=== PATIENT | male | born 1950 | race Caucasian/White ===

== ENCOUNTER 2019-09-06 16:09 | Inpatient (IN) | payer MEDICAID, SELFPAY ==
[~2019-09-06] VITALS: Ht 175.3 cm; Wt 76.2 kg
--- NOTE | 2019-09-06 16:37 | NUR ---
BIBRA FROM HOME TO ER BED 5. AAOX4. BREATHING RAPID AND DEEP BUT DENIES SOB. CAME IN FOR COUGH X 1 WEEK. PT IS NOTED 88% ON RA, PLACED ON O2 VIA NC @ 4LPM. PT WAS TESTED POSITIVE FOR COVID PER REPORT. NO FEVER. MD AT BEDSIDE FOR EVAL. AWAITING ORDERS
[2019-09-06] MEDS ORDERED: ACETAMINOPHEN ES 500 MG TABLET ONE (16:53)
[2019-09-06] MEDS ORDERED: IV NS 0.9% 500 ML IV ONE (17:00)
--- NOTE | 2019-09-06 17:09 | NUR ---
PT NOTED WITH ORAL TEMP 101.3, MADE AWARE. IV LINE OBTAINED ON L AC 18G. BLOOD DRAWN AND SENT TO LAB. URINE COLLECTED VIA CLEAN CATCH. RT AT BEDSIDE FOR ABG DRAW. PT IN O2 VIA NC @ 4LPM
[2019-09-06 17:12] LABS: BASOPHILS % (AUTO) 0.2 % (0.0-2.0); HEMATOCRIT 41 % (39-51); HEMOGLOBIN 13.8 g/dL (13.5-17.5); LYMPHOCYTES # (AUTO) 1.8 /CMM (0.8-4.8); LYMPHOCYTES % (AUTO) 20.5 % (20.0-44.0); MEAN CORPUSCULAR HGB CONC 33 g/dl (31.0-36.0); MEAN CORPUSCULAR VOLUME 86 fL (80-96); MONOCYTES # (AUTO) 0.9 /CMM (0.1-1.30); MONOCYTES % (AUTO) 10.8 % (2.0-12.0); NEUTROPHILS # (AUTO) 5.9 /CMM (1.8-8.9); NEUTROPHILS % (AUTO) 68.5 % (43.0-81.0); PLATELET COUNT (AUTO) 155 /CMM (150-450); RED BLOOD CELL COUNT(AUTO) 4.81 MIL/uL (4.5-6.0); WHITE BLOOD COUNT (AUTO) 8.6 K/uL (4.3-11.0)
[2019-09-06 17:19] LABS: CALCIUM, SERUM 8.2 mg/dL (8.5-10.1); CREATININE 3.2 mg/dL (0.6-1.3); POTASSIUM 4.9 mmol/L (3.5-5.1)
--- NOTE | 2019-09-06 17:26 | NUR ---
PHARMACY CALLED FOR ATB
[2019-09-06] MEDS ORDERED: CEFEPIME 1 GM in IV D5W 50 ML IV ONE (17:30)
[2019-09-06] MEDS ORDERED: VANCOMYCIN 1 GM in IV D5W 250 ML IV ONE (17:30)
[2019-09-06 17:31] LABS: APPEARANCE,URINE Clear (CLEAR); BILIRUBIN,URINE Negative (NEGATIVE); BLOOD, URINE Small Ery/uL (NEGATIVE); COLOR,URINE Yellow (YELLOW); KETONES,URINE Negative (NEGATIVE); LEUKOCYTE ESTERASE ,URINE Negative (NEGATIVE); NITRITE, URINE Negative (NEGATIVE); PROTEIN,URINE 100 mg/dl (NEGATIVE); UGLUCOSE Negative (NEGATIVE); UROBILINOGEN,URINE 0.2 EU/dL (0.2)
[2019-09-06 17:32] LABS: BACTERIA,URINE Few /HPF (None Seen); SQUAMOUS EPITHELIAL CELL,UR Few /HPF (None Seen); WBC,URINE 0-2 /HPF (0-3)
[2019-09-06 17:33] LABS: ALBUMIN 2.8 g/dL (3.4-5.0); BILIRUBIN,TOTAL 0.5 mg/dL (0.2-1.0); TOTAL PROTEIN, SERUM 8.1 g/dL (6.4-8.2)
[2019-09-06 17:39] LABS: D-DIMER 0.71 mg/L(FEU (0.17-0.50)
[2019-09-06 17:42] LABS: ABG BASE EXCESS -8.8 mmol/L; ABG OXYGEN SATURATION 94.1 % (92.0-98.5); ABG PCO2 22.7 mmHg (35.0-45.0); ABG PH 7.404 (7.350-7.450); ABG PO2 73.2 mmHg (75.0-100.0); AaDO2 185.9 mmHg; COHb 0.1 % (0.5-1.5); MetHb 0.4 % (0.0-1.5); O2Hb 93.6 % (94.0-97.0); SITE, ABG Right Brachial
--- NOTE | 2019-09-06 18:27 | NUR ---
LORE SAMUEL TALKING TO [place]
[2019-09-06] MEDS ORDERED: ACETAMINOPHEN ES 500 MG TABLET PO ONE (18:30)
[2019-09-06 18:36] LABS: C-REACTIVE PROTEIN 7.8 mg/dL (0.0-0.9)
--- NOTE | 2019-09-06 19:21 | NUR ---
ANGELA CARRANZA (SON) AND LATIA TERE () - [phone]. OK TO GIVE INFORMATION TO THIS PEOPLE
--- NOTE | 2019-09-06 19:40 | NUR ---
PANEL PAGED PER ER MD ORDER.
--- NOTE | 2019-09-06 19:44 | NUR ---
ER TALKING TO BRANDON GARCIA REGARDING PT ADMISSION.
--- NOTE | 2019-09-06 20:30 | NUR ---
COVID SWAB DONE AND SENT TO LAB.
--- NOTE | 2019-09-06 20:46 | NUR ---
REPORT GIVEN TO ABELINO FRANCO FOR LOGAN
[2019-09-06 22:00] VITALS: BP 144/77
[2019-09-06 22:05] VITALS: BP 144/77
--- NOTE | 2019-09-06 22:05 | NUR ---
RADIO OFFICER: ADMISSION 69 years old male admitted c/o coughing. Sinus Rhythm in the Tele monitor. Patient is Martiniquais speaking, SHERRY Andrews assist with translation. Tolerating room air, denies SOB at rest and with exertion. Ambulates independently. Skin intact. Safety measure discussed, verbalized understanding.
--- NOTE | 2019-09-06 22:07 | NUR ---
PT TRANSPORTED TO UNIT ON [place] WITH EMT AND RN AT BEDSIDE. NAD NOTED DURING TRANSPORT. PT AMBULATED FROM GURNEY TO BED.
--- NOTE | 2019-09-06 22:54 | NUR ---
BOILER CONTROL TECHNICIAN: INSULIN Prior transferred to unit, allergy to Insulin per ED report. Patient with history of Diabetes. SHERRY Andrews assist with Arabic translation, per patient he is taking insulin at home. Called home, spoke to Derrick Joe, son, patient is taking insulin and patients spouse help giving insulin to patient per son. Allergy to medication updated. Also list of current home medication provided by Son Derrick Joe.
[2019-09-06] MEDS ORDERED: ONDANSETRON HCL/PF 4 MG/2 ML VIAL IVP PRN (23:00)
[2019-09-06] MEDS ORDERED: DEXTROSE 50%-WATER 50 ML DISP.SYRIN IV PRN (23:00)
[2019-09-06] MEDS ORDERED: Z GUARD REMEDY 2 OZ OINT TP PRN (23:00)
[2019-09-06] MEDS ORDERED: ACETAMINOPHEN 325 MG TABLET PO PRN (23:00)
[2019-09-06] MEDS ORDERED: ZOLPIDEM TARTRATE 5 MG TABLET PO PRN (23:00)
[2019-09-06] MEDS ORDERED: MAG HYDROX/AL HYDROX/SIMETH 30 ML UDC PO PRN (23:00)
[2019-09-06] MEDS ORDERED: HYDROCODONE/APAP 5/325MG 1 EACH TABLET PO PRN (23:00)
[2019-09-06] MEDS ORDERED: AZITHROMYCIN 250 MG TABLET PO ONE (23:00)
[2019-09-06] MEDS ORDERED: AMLO10TA7 PO (23:03)
[2019-09-06] MEDS ORDERED: BENA20TA9 PO (23:03)
[2019-09-06] MEDS ORDERED: ASPI-605 PO (23:03)
[2019-09-06] MEDS: BLOOD SUGAR DIAGNOSTIC 1 EACH STRIP IN SCH (23:42)
[2019-09-06] MEDS: HEPARIN SODIUM, PORCINE 5000 UNITS/1 ML VIAL SQ SCH (23:46)
--- NOTE | 2019-09-06 23:49 | NUR ---
ORE WASHER: LOW BLOOD GLUCOSE Blood glucose 56mg/dl patient can eat. Remains alert and verbally responsive. Given orange juice and snack. Will recheck blood glucose.
[2019-09-06] MEDS: HYDROXYCHLOROQUINE 200 MG TABLET PO SCH (23:54)
[2019-09-07] VITALS (11 sets, daily range): BP systolic 121–150; BP diastolic 62–79
--- NOTE | 2019-09-07 00:34 | NUR ---
COUNTY ASSESSOR: REPEAT BLOOD GLUCOSE Blood glucose improved, 99mg/dl after snack. Patient remains verbally responsive, A/O x4.
--- NOTE | 2019-09-07 06:18 | NUR ---
CERTIFIED TRAVEL COUNSELOR: END OF SHIFT REPORT Patient in bed, remains on supplemental Oxygen at 2L NC, unable to lie flat in bed, denies SOB at rest and with exertion. Sinus Rhythm in the Tele monitor, denies pain. Ambulates to the bathroom with standby assist. Med recon for review, HYACINTH Perkins aware, will endorse to oncoming RN to follow up. COVID-19 pending result, contact/droplet precaution maintained.
[2019-09-07] MEDS: BLOOD SUGAR DIAGNOSTIC 1 EACH STRIP IN SCH ×4 (06:28→21:34)
[2019-09-07 06:48] LABS: BASOPHILS % (AUTO) 0.3 % (0.0-2.0); EOSINOPHILS % (AUTO) 0.3 % (0.0-6.0); HEMATOCRIT 40 % (39-51); HEMOGLOBIN 13.2 g/dL (13.5-17.5); LYMPHOCYTES % (AUTO) 29.2 % (20.0-44.0); MEAN CORPUSCULAR HGB CONC 33 g/dl (31.0-36.0); MEAN CORPUSCULAR VOLUME 86 fL (80-96); MONOCYTES # (AUTO) 0.7 /CMM (0.1-1.30); MONOCYTES % (AUTO) 10.1 % (2.0-12.0); NEUTROPHILS % (AUTO) 60.1 % (43.0-81.0); PLATELET COUNT (AUTO) 152 /CMM (150-450); WHITE BLOOD COUNT (AUTO) 6.7 K/uL (4.3-11.0)
[2019-09-07 07:09] LABS: CALCIUM, SERUM 8.4 mg/dL (8.5-10.1); CREATININE 3.1 mg/dL (0.6-1.3); MAGNESIUM 2.2 mg/dL (1.8-2.4); PHOSPHORUS 3.5 mg/dL (2.5-4.9); POTASSIUM 4.5 mmol/L (3.5-5.1)
--- NOTE | 2019-09-07 07:45 | NUR ---
RN OPENING NOTE: Received patient asleep in bed no signs of distress. On NC 3L tolerating well. Patient is Greenlandic speaking AO x4. Telereading SR. Patient able to ambulate with assist. Pt has L AC 20 flushed well. Awaiting Covid swab results. Aware positive in outpatient appt. Safety measures implemented. Call light within reach. Siderails up x2. Bed locked and on lowest position. Will cont to monitor.
[2019-09-07] MEDS: HYDROXYCHLOROQUINE 200 MG TABLET PO SCH ×2 (08:38→17:59)
[2019-09-07] MEDS: HEPARIN SODIUM, PORCINE 5000 UNITS/1 ML VIAL SQ SCH ×2 (08:39→21:35)
--- NOTE | 2019-09-07 09:00 | NUR ---
RN NOTE Lab confirmed pt is COVID 19 positive.
[2019-09-07] MEDS: AMLODIPINE BESYLATE 10 MG TABLET PO SCH (11:21)
[2019-09-07] MEDS: ASPIRIN EC 81 MG TABLET.DR PO SCH (11:21)
--- NOTE | 2019-09-07 12:47 | NUR ---
RN NOTE Called Dr. Escobar to get order for Acetaminophen for fever. Per MD no antipyretic,.
--- NOTE | 2019-09-07 16:30 | NUR ---
RN NOTE Patient was noted with fever. Gave cooling measures. No Tylenol prescribed to patient.
--- NOTE | 2019-09-07 19:15 | NUR ---
RN CLOSING NOTE Patient in bed asleep. No signs of distress. On NC 2L tolerating well. No co pain or discomfort. Patient has fever. Ice packs in place no antipyretics per MD. Safety measure reinforced. Call light within reach. Siderails up x2. Will endorse to night stocker nurse for juan ramon.
--- NOTE | 2019-09-07 19:32 | NUR ---
RN NOTE Made Gregorio aware of no antipyretic order for patient. Awaiting respond.
[2019-09-07] MEDS ORDERED: ACETAMINOPHEN 650 MG/20.3 ML UDC PO ONE (20:00)
[2019-09-07] MEDS ORDERED: ACETAMINOPHEN 325 MG TABLET PO PRN (20:00)
[2019-09-07] MEDS ORDERED: ACETAMINOPHEN 325 MG TABLET PO ONE (20:00)
[2019-09-08] VITALS: BP 136/71
[2019-09-08 04:00] VITALS: BP 147/78
[2019-09-08 06:29] LABS: BASOPHILS % (AUTO) 0.5 % (0.0-2.0); EOSINOPHILS % (AUTO) 0.4 % (0.0-6.0); HEMATOCRIT 42 % (39-51); HEMOGLOBIN 13.9 g/dL (13.5-17.5); LYMPHOCYTES # (AUTO) 2.9 /CMM (0.8-4.8); LYMPHOCYTES % (AUTO) 32.2 % (20.0-44.0); MEAN CORPUSCULAR HGB CONC 33 g/dl (31.0-36.0); MEAN CORPUSCULAR VOLUME 87 fL (80-96); MONOCYTES % (AUTO) 11.3 % (2.0-12.0); NEUTROPHILS # (AUTO) 5.1 /CMM (1.8-8.9); NEUTROPHILS % (AUTO) 55.6 % (43.0-81.0); PLATELET COUNT (AUTO) 199 /CMM (150-450); RED BLOOD CELL COUNT(AUTO) 4.87 MIL/uL (4.5-6.0); WHITE BLOOD COUNT (AUTO) 9.1 K/uL (4.3-11.0)
[2019-09-08 06:41] LABS: ALBUMIN 2.5 g/dL (3.4-5.0); BILIRUBIN,TOTAL 0.5 mg/dL (0.2-1.0); CALCIUM, SERUM 8.9 mg/dL (8.5-10.1); CREATININE 3.2 mg/dL (0.6-1.3); MAGNESIUM 2.3 mg/dL (1.8-2.4); PHOSPHORUS 3.8 mg/dL (2.5-4.9); POTASSIUM 4.6 mmol/L (3.5-5.1); TOTAL PROTEIN, SERUM 7.9 g/dL (6.4-8.2)
--- NOTE | 2019-09-08 07:45 | NUR ---
RESEARCH ENGINEER MARINE EQUIPMENT NOTES PATIENT IN BED A/O X 4 AZERBAIJANI SPEAKER. ON DROPLET ISOLATION FOR POSITIVE COVID. NO SOB OR PAIN NOTED AT THIS TIME. CALL LIGHT WITHIN REACH BED AT THE LOWEST POSITION LOCKED. WILL CONTINUE TO MONITOR THE PATIENT.
[2019-09-08] MEDS: BLOOD SUGAR DIAGNOSTIC 1 EACH STRIP IN SCH ×4 (07:59→22:00)
[2019-09-08 08:00] VITALS: BP 133/76
--- NOTE | 2019-09-08 08:57 | NUR ---
COBOL MAINFRAME DEVELOPER NOTES BLOOD GLUCOSE LEVEL 107 MG/DL NO INSULIN ADMINISTRATED PER SLIDING SCALES.
[2019-09-08] MEDS: ASPIRIN EC 81 MG TABLET.DR PO SCH ×2 (09:00→09:15)
[2019-09-08] MEDS: HYDROXYCHLOROQUINE 200 MG TABLET PO SCH ×2 (09:14→17:55)
[2019-09-08] MEDS: AMLODIPINE BESYLATE 10 MG TABLET PO SCH (09:16)
[2019-09-08] MEDS: HEPARIN SODIUM, PORCINE 5000 UNITS/1 ML VIAL SQ SCH ×2 (09:18→21:57)
[2019-09-08 12:00] VITALS: BP 140/78
--- NOTE | 2019-09-08 12:19 | NUR ---
EMAIL DEVELOPER NOTES PATIENT BLOOD GLUCOSE LEVEL 185 MG/DL. PATIENT STATED THAT HE DOES NOT WANT TO RECEIVE INSULIN.
[2019-09-08 16:00] VITALS: BP 124/80
--- NOTE | 2019-09-08 18:08 | NUR ---
JOURNEYMAN WIREMAN NOTES PATIENT BLOOD SUGAR 135 MG/DL AND HE IS REFUSING TO GET INSULIN.
--- NOTE | 2019-09-08 19:01 | NUR ---
BLANKET MAKER NOTES PATIENT IN BED AWAKE, NO SOB OR DISCOMFORT NOTED AT THIS TIME, STABLE . REPORT HANDED TO COMMUNITY BOARD MEMBER NURSE.
[2019-09-08 20:00] VITALS: BP 142/71
--- NOTE | 2019-09-08 22:07 | NUR ---
BLOOD SUGAR NPLRORWURDX=[id number], NO INSULIN GIVEN.
[2019-09-09 00:05] VITALS: BP 124/71
[2019-09-09 04:00] VITALS: BP 141/81
[2019-09-09 07:07] LABS: BASOPHILS % (AUTO) 0.4 % (0.0-2.0); EOSINOPHILS % (AUTO) 0.1 % (0.0-6.0); HEMATOCRIT 39 % (39-51); LYMPHOCYTES # (AUTO) 1.7 /CMM (0.8-4.8); LYMPHOCYTES % (AUTO) 18.2 % (20.0-44.0); MEAN CORPUSCULAR HGB CONC 33 g/dl (31.0-36.0); MEAN CORPUSCULAR VOLUME 86 fL (80-96); MONOCYTES % (AUTO) 10.9 % (2.0-12.0); NEUTROPHILS # (AUTO) 6.6 /CMM (1.8-8.9); NEUTROPHILS % (AUTO) 70.4 % (43.0-81.0); PLATELET COUNT (AUTO) 225 /CMM (150-450); RED BLOOD CELL COUNT(AUTO) 4.58 MIL/uL (4.5-6.0); WHITE BLOOD COUNT (AUTO) 9.4 K/uL (4.3-11.0)
--- NOTE | 2019-09-09 07:08 | NUR ---
RN CLOSING NOTES: PATIENT IN BED,AWAKE A/O X4. NO COMPLAIN OF PAIN. NO SOB NOTED. AMBULATORY. URINE SAMPLE COLLECTED FOR UA, SODIUM RANDOM URINE, TOTAL PROTEIN AND OTHER TESTS COLLECTED AND SENT TO THE LAB. ISOLATION OBSERVED AT ALL TIMES. CALL LIGHT WITHIN REACH. BED IN LOWEST AND LOCKED POSITION. RESTED THROUGHOUT THE NIGHT.
[2019-09-09 07:24] LABS: ALBUMIN 2.5 g/dL (3.4-5.0); BILIRUBIN,TOTAL 0.5 mg/dL (0.2-1.0); CALCIUM, SERUM 8.7 mg/dL (8.5-10.1); CREATININE 3.3 mg/dL (0.6-1.3); MAGNESIUM 2.3 mg/dL (1.8-2.4); PHOSPHORUS 3.5 mg/dL (2.5-4.9); POTASSIUM 5.3 mmol/L (3.5-5.1); TOTAL PROTEIN, SERUM 7.9 g/dL (6.4-8.2)
--- NOTE | 2019-09-09 07:45 | NUR ---
HOME HEALTH ATTENDANT NOTES RECEIVED PATIENT IN BED. AWAKE, A/OX4 . NO SOB OR DISCOMFORT NOTED AT THIS TIME. PATIENT IS CONFUSED. ON ROOM AIR SATURATING 98%. CALL LIGHT WITHIN REACH. BED AT THE LOWEST POSITION LOCKED. WILL CONTINUE TO MONITOR THE PATIENT. Addendum: 09/09/19 at 1652 by TANA BONILLA RN PATIENT IS NOT CONFUSED A/OX 4 MONGOLIAN SPEAKER.
[2019-09-09] MEDS: BLOOD SUGAR DIAGNOSTIC 1 EACH STRIP IN SCH ×4 (07:54→22:05)
[2019-09-09 08:00] VITALS: BP 137/60
[2019-09-09] MEDS: HYDROXYCHLOROQUINE 200 MG TABLET PO SCH ×2 (08:13→17:30)
[2019-09-09] MEDS: ASPIRIN EC 81 MG TABLET.DR PO SCH (08:21)
[2019-09-09] MEDS: HEPARIN SODIUM, PORCINE 5000 UNITS/1 ML VIAL SQ SCH ×2 (08:21→20:29)
[2019-09-09] MEDS: AMLODIPINE BESYLATE 10 MG TABLET PO SCH (08:22)
[2019-09-09 09:06] LABS: C-REACTIVE PROTEIN 11.6 mg/dL (0.0-0.9)
[2019-09-09 09:14] LABS: APPEARANCE,URINE CLOUDY (CLEAR); BILIRUBIN,URINE NEGATIVE (NEGATIVE); BLOOD, URINE SMALL Ery/uL (NEGATIVE); COLOR,URINE YELLOW (YELLOW); KETONES,URINE NEGATIVE (NEGATIVE); LEUKOCYTE ESTERASE ,URINE NEGATIVE (NEGATIVE); NITRITE, URINE NEGATIVE (NEGATIVE); PROTEIN,URINE 30 mg/dl (NEGATIVE); UGLUCOSE NEGATIVE (NEGATIVE); UROBILINOGEN,URINE 0.2 EU/dL (0.2)
[2019-09-09 10:10] LABS: CREATININE, URINE 104.8 MG/DL (30.0-125.0); URINE TOTAL PROTEIN 105.5 mg/dL (0-11.9)
[2019-09-09 11:39] LABS: BACTERIA,URINE Few /HPF (None Seen); SQUAMOUS EPITHELIAL CELL,UR Few /HPF (None Seen)
[2019-09-09 11:40] LABS: COARSE GRANULAR CASTS,URINE Few /LPF (None Seen)
[2019-09-09 12:00] VITALS: BP 134/63
--- NOTE | 2019-09-09 12:45 | NUR ---
TATTOOER NOTES PATIENT REFUSED INSULIN FOR 1200.
[2019-09-09] MEDS: IV NS 0.9% 1,000 ML IV PRN (13:24)
[2019-09-09 13:43] LABS: EOSINOPHIL,URINE None Seen
[2019-09-09 16:00] VITALS: BP 140/78
--- NOTE | 2019-09-09 18:48 | NUR ---
CHIEF PSYCHOLOGY NOTES PATIENT REFUSED THE INSULIN FOR 1700.
--- NOTE | 2019-09-09 18:53 | NUR ---
CHIEF LIBRARIAN EXTENSION DEPARTMENT NOTES PATIENT IN BED A/OX4. NO SOB OR DISCOMFORT AT THIS TIME AND SHE IS IN STABLE CONDITION. ALL NEEDS ATTENDED. NO MAJOR CHANGES DURING SHIFT. MEDS ADMINISTRATED. REPORT HANDED TO PROGRAM/MUSIC DIRECTOR NURSE.
[2019-09-09 20:00] VITALS: BP 122/73
--- NOTE | 2019-09-09 22:00 | NUR ---
ELECTROLYSIS OPERATOR NOTES BLOOD SUGAR FOR 10PM IS 154MG/DL NO INSULIN COVERAGE GIVEN ORDERED. WILL CHECK BS AGAIN IN AM.
--- NOTE | 2019-09-09 22:52 | NUR ---
MOLDER PIPE COVERING NOTES PATIENT IN BED A/O X 4 JAMAICAN SPEAKING. ON DROPLET ISOLATION FOR POSITIVE COVID. PRECAUTIONARY MEASURES OBSERVE AT ALL TIMES , PTS ON 2 LITERS OF O2 VIA NC SATING 92%,NO SOB NO DISTRESS OR PAIN NOTED AT THIS TIME. ALL NEEDS ATTENDED TOO .DUE MEDS GIVEN ORDERED ,CALL LIGHT WITHIN REACH .BED AT THE LOWEST POSITION LOCKED. WILL CONTINUE TO MONITOR THE PATIENT.PTS ON IVF OF NS AT 100CC/HR INFUSING WELL ,ON LEFT AC G#20 INTACT AND PATENT ,V/S STABLE AFEBRILE. KEPT PTS CLEAN DRY AND COMFORTABLE.
[2019-09-10] VITALS: BP 117/69
[2019-09-10] MEDS: IV NS 0.9% 1,000 ML IV PRN (00:19)
[2019-09-10 04:00] VITALS: BP 139/71
[2019-09-10 07:13] LABS: PTH, INTACT 77 pg/mL (15-65)
[2019-09-10 07:17] LABS: BASOPHILS % (AUTO) 0.3 % (0.0-2.0); EOSINOPHILS % (AUTO) 0.6 % (0.0-6.0); HEMATOCRIT 41 % (39-51); HEMOGLOBIN 13.2 g/dL (13.5-17.5); LYMPHOCYTES # (AUTO) 1.6 /CMM (0.8-4.8); LYMPHOCYTES % (AUTO) 17.2 % (20.0-44.0); MEAN CORPUSCULAR HGB CONC 32 g/dl (31.0-36.0); MEAN CORPUSCULAR VOLUME 87 fL (80-96); MONOCYTES # (AUTO) 1.1 /CMM (0.1-1.30); NEUTROPHILS # (AUTO) 6.4 /CMM (1.8-8.9); NEUTROPHILS % (AUTO) 69.9 % (43.0-81.0); PLATELET COUNT (AUTO) 249 /CMM (150-450); RED BLOOD CELL COUNT(AUTO) 4.76 MIL/uL (4.5-6.0); WHITE BLOOD COUNT (AUTO) 9.2 K/uL (4.3-11.0)
--- NOTE | 2019-09-10 07:20 | NUR ---
RN OPENING NOTE: REceived patient in bed. Awake, alert and oriented x4. Able to make needs known. Mohawk speaking only. Sinus rhythm reported by previous shift in tele reading. No pain reported. Isolation precaution in place for COVID-19. On cont. 02 via NC @ 3lpm with 98% saturation noted on patient. NO SOB and not in respiratory distress. IV site clean, dry patent and intact. Call light in reach. Bed locked, low and at semi-montanez's position. Side rails up x3. Safety ensured and observed. Will continue to monitor.
[2019-09-10] MEDS: BLOOD SUGAR DIAGNOSTIC 1 EACH STRIP IN SCH ×4 (07:30→22:37)
[2019-09-10 07:31] LABS: CALCIUM, SERUM 8.6 mg/dL (8.5-10.1); CREATININE 2.8 mg/dL (0.6-1.3); POTASSIUM 5.5 mmol/L (3.5-5.1)
[2019-09-10 08:00] VITALS: BP 133/80
[2019-09-10] MEDS: HYDROXYCHLOROQUINE 200 MG TABLET PO SCH ×2 (08:49→16:35)
[2019-09-10] MEDS: AMLODIPINE BESYLATE 10 MG TABLET PO SCH (08:49)
[2019-09-10] MEDS: ASPIRIN EC 81 MG TABLET.DR PO SCH (08:49)
[2019-09-10] MEDS: HEPARIN SODIUM, PORCINE 5000 UNITS/1 ML VIAL SQ SCH ×2 (08:51→21:38)
[2019-09-10 12:00] VITALS: BP 128/82
[2019-09-10] MEDS ORDERED: SODIUM POLYSTYRENE SULFONATE 15 G/60 ML BOTTLE PO ONE (12:00)
--- NOTE | 2019-09-10 12:19 | NUR ---
RN note: Stat EKG was done due to A. fib being detected in tele monitoring. Results were relayed to Dr. Heard, he acknowledged and he will inform Dr. Martinez
[2019-09-10 16:00] VITALS: BP 118/72
--- NOTE | 2019-09-10 17:56 | NUR ---
RN note: Dr. Heard informed about patient's Blood Sugar of 203 and that patient consumed orange juice and ate some food within the last hour prior to blood sugar check. acknowledged information
--- NOTE | 2019-09-10 19:10 | NUR ---
RN closing note: Patient in bed. Awake, alert and oriented x4. Able to make needs known. Ugandan speaking only. Uncontrolled A. fib in the 120-130s noted in tele monitor, patient not in pain or distress and states that he is fine, informed of Dr. Heard and Dr. Martinez about situation with order of Metoprolol 25mg BID obtained from Dr. Heard. Noted and carried out. Isolation precaution in place for COVID-19. On cont. 02 via NC @ 3lpm with 100 saturation noted on patient. IV site clean, dry patent and intact. Call light in reach. Bed locked, low and at semi-montanez's position. Side rails up x3. Safety ensured and observed. Endorsed to oncoming shift for LOGAN.
[2019-09-10] MEDS: METOPROLOL TARTRATE 25 MG TABLET PO SCH (19:49)
[2019-09-10 20:00] VITALS: BP_SYST 142; BP_SYST 154; BP_DIAS 68; BP_DIAS 87
[2019-09-10 22:58] LABS: ABG BASE EXCESS -7.4 mmol/L; ABG OXYGEN SATURATION 89.3 % (92.0-98.5); ABG PCO2 26.1 mmHg (35.0-45.0); ABG PH 7.397 (7.350-7.450); ABG PO2 58.3 mmHg (75.0-100.0); AaDO2 139.3 mmHg; COHb 0.2 % (0.5-1.5); MetHb 0.3 % (0.0-1.5); O2Hb 88.9 % (94.0-97.0); SITE, ABG Right Radial; VENT MODE, BG NASAL CANNULA
[2019-09-11] VITALS (26 sets, daily range): BP systolic 107–154; BP diastolic 61–96
[2019-09-11 06:37] LABS: BASOPHILS % (AUTO) 0.3 % (0.0-2.0); EOSINOPHILS % (AUTO) 0.6 % (0.0-6.0); HEMATOCRIT 42 % (39-51); HEMOGLOBIN 13.5 g/dL (13.5-17.5); LYMPHOCYTES # (AUTO) 1.7 /CMM (0.8-4.8); LYMPHOCYTES % (AUTO) 17.9 % (20.0-44.0); MEAN CORPUSCULAR HGB CONC 33 g/dl (31.0-36.0); MEAN CORPUSCULAR VOLUME 87 fL (80-96); MONOCYTES # (AUTO) 1.1 /CMM (0.1-1.30); MONOCYTES % (AUTO) 11.5 % (2.0-12.0); NEUTROPHILS # (AUTO) 6.7 /CMM (1.8-8.9); NEUTROPHILS % (AUTO) 69.7 % (43.0-81.0); PLATELET COUNT (AUTO) 273 /CMM (150-450); WHITE BLOOD COUNT (AUTO) 9.6 K/uL (4.3-11.0)
[2019-09-11 06:55] LABS: ALBUMIN 2.3 g/dL (3.4-5.0); BILIRUBIN,TOTAL 0.5 mg/dL (0.2-1.0); CALCIUM, SERUM 8.8 mg/dL (8.5-10.1); CREATININE 2.4 mg/dL (0.6-1.3); MAGNESIUM 2.1 mg/dL (1.8-2.4); PHOSPHORUS 3.6 mg/dL (2.5-4.9); POTASSIUM 4.7 mmol/L (3.5-5.1); TOTAL PROTEIN, SERUM 7.9 g/dL (6.4-8.2)
--- NOTE | 2019-09-11 07:05 | NUR ---
RN opening note: Receveid patient in bed. Awake, alert and oriented x4. Able to make needs known. Cape Verdean speaking only. Uncontrolled A. fib below 110s noted in tele monitor, patient not in pain or distress. Isolation precaution in place for COVID-19. On cont. 02 via face mask @ 10lpm with 92% saturation noted on patient. IV site clean, dry patent and intact. Call light in reach. Bed locked, low and at semi-montanez's position. Side rails up x3. Safety ensured and observed. Will continue to monitor.
[2019-09-11] MEDS: HEPARIN SODIUM, PORCINE 5000 UNITS/1 ML VIAL SQ SCH ×2 (09:00→21:55)
[2019-09-11] MEDS: BLOOD SUGAR DIAGNOSTIC 1 EACH STRIP IN SCH ×4 (09:00→22:16)
--- NOTE | 2019-09-11 09:00 | NUR ---
RN note: Patient initial saturation at 90% and noted to be non compliant with keeping the face mask on at all times. Reinforced learing on oxygen use and positioning. Saturation now at 92-94%.
[2019-09-11] MEDS: HYDROXYCHLOROQUINE 200 MG TABLET PO SCH (09:01)
[2019-09-11] MEDS: ASPIRIN EC 81 MG TABLET.DR PO SCH (09:01)
[2019-09-11] MEDS: METOPROLOL TARTRATE 25 MG TABLET PO SCH ×2 (09:42→22:01)
[2019-09-11] MEDS: AMLODIPINE BESYLATE 10 MG TABLET PO SCH (09:42)
--- NOTE | 2019-09-11 11:00 | NUR ---
RN note: Patient noted with saturation of 93% on 10lpm via face mask. SOB on activity noted, not in respiratory distress. reinforced importance of oxygen use due to current condition.
[2019-09-11 11:08] LABS: *SPE A/G RATIO 0.6 (0.7-1.7); *SPE ALBUMIN 2.5 g/dL (2.9-4.4); *SPE ALPHA-1-GLOBULIN 0.4 g/dL (0.0-0.4); *SPE ALPHA-2-GLOBULIN 1.1 g/dL (0.4-1.0); *SPE BETA GLOBULIN 1.1 g/dL (0.7-1.3); *SPE GLOBULIN, TOTAL 4.3 g/dL (2.2-3.9); *SPE M-SPIKE Not Observed g/dL (Not Observed); *SPEGAMMA GLOBULIN 1.7 g/dL (0.4-1.8)
[2019-09-11 12:55] LABS: ABG BASE EXCESS -7.7 mmol/L; ABG OXYGEN SATURATION 95.5 % (92.0-98.5); ABG PCO2 27.8 mmHg (35.0-45.0); ABG PH 7.376 (7.350-7.450); ABG PO2 85.1 mmHg (75.0-100.0); AaDO2 312.1 mmHg; COHb 0.5 % (0.5-1.5); MetHb 0.3 % (0.0-1.5); O2Hb 94.7 % (94.0-97.0); SITE, ABG Right Radial
--- NOTE | 2019-09-11 13:01 | NUR ---
BOWLING BALL PATCHER NOTE RECEIVED REPORT FROM GUSTAVO, PATIENT TO BE TRANSFERRED TO ROOM 253
--- NOTE | 2019-09-11 13:15 | NUR ---
HYDROPULPER OPERATOR NOTE RECEIVED PATIENT VIA BED. ISOLATION PRECAUTIONS OBSERVED FOR POSITIVE COVID. PATIENT TUVALUAN SPEAKING. DENIES PAIN AT THIS TIME. PATIENT ON 10LPM SIMPLE MASK WITH SPO2 100%, PLACED PATIENT ON 6LPMO2 VIA NC WITH SPO2 96%. PATIENT SR ON MONITOR. ORIENTED PATIENT TO ROOM AND CALL LIGHT SYSTEM, PATIENT VERBALIZED UNDERSTANDING. HOB ELEVATED. SIDE RAILS UP AND LOCKED. BED KEPT AT LOWEST POSITION. CALL LIGHT KEPT WITHIN EASY REACH. WILL CONTINUE TO MONITOR.
--- NOTE | 2019-09-11 13:15 | NUR ---
RN note: Transferred patient to ICU via bed for desaturation. Patient with saturation of 92% of cont. o2 via face mask @ 10lpm. Vital signs within normal limits. No pain reported by patient. Patient awake, alert and oriented x4. with shortness of breath noted on exertion and some degree on rest. Yarsanism (son) informed of transfer.
[2019-09-11] MEDS ORDERED: methylPREDNISolone SOD SUCC 125 MG/2ML VIAL IV SCH (15:00)
[2019-09-11] MEDS: methylPREDNISolone SOD SUCC 125 MG/2ML VIAL IV SCH (17:54)
--- NOTE | 2019-09-11 19:15 | NUR ---
ICU/RN RECEIVED PATIENT WITH NO SIGN OF ANY DISTRESS PATIENT IS ALERT AND FAROESE SPEAKING ONLY. PATIENT ON 6L OF O2 SATURATING AT 95% WITH NO SIGN OF ANY SOB. HAS A LFA #22 S/L FLUSHING AND PATENT. PATIENT HAS COMMODE AT BEDSIDE. ALL SAFETY PRECAUTIONS HAVE BEEN APPLIED. WILL CONTINUE TO MONITOR PATIENT THROUGHOUT SHIFT.
[2019-09-12] VITALS (30 sets, daily range): BP systolic 87–160; BP diastolic 44–89
[2019-09-12] MEDS ORDERED: DEXTROSE 50%-WATER 50 ML DISP.SYRIN IV PRN (01:00)
[2019-09-12] MEDS: INSULIN REGULAR, HUMAN 100 UNIT/ML 3 ML VIAL SQ PRN ×5 (01:37→21:26)
[2019-09-12 04:37] LABS: BASOPHILS % (AUTO) 0.2 % (0.0-2.0); HEMATOCRIT 40 % (39-51); HEMOGLOBIN 13.3 g/dL (13.5-17.5); LYMPHOCYTES # (AUTO) 0.9 /CMM (0.8-4.8); LYMPHOCYTES % (AUTO) 14.5 % (20.0-44.0); MEAN CORPUSCULAR HGB CONC 33 g/dl (31.0-36.0); MEAN CORPUSCULAR VOLUME 86 fL (80-96); MONOCYTES # (AUTO) 0.3 /CMM (0.1-1.30); MONOCYTES % (AUTO) 4.8 % (2.0-12.0); NEUTROPHILS # (AUTO) 4.9 /CMM (1.8-8.9); NEUTROPHILS % (AUTO) 80.5 % (43.0-81.0); PLATELET COUNT (AUTO) 305 /CMM (150-450); RED BLOOD CELL COUNT(AUTO) 4.66 MIL/uL (4.5-6.0); WHITE BLOOD COUNT (AUTO) 6.1 K/uL (4.3-11.0)
[2019-09-12 04:46] LABS: ALBUMIN 2.2 g/dL (3.4-5.0); BILIRUBIN,TOTAL 0.5 mg/dL (0.2-1.0); CALCIUM, SERUM 8.6 mg/dL (8.5-10.1); CREATININE 2.5 mg/dL (0.6-1.3); MAGNESIUM 2.1 mg/dL (1.8-2.4); PHOSPHORUS 3.5 mg/dL (2.5-4.9); POTASSIUM 4.6 mmol/L (3.5-5.1); TOTAL PROTEIN, SERUM 7.7 g/dL (6.4-8.2)
--- NOTE | 2019-09-12 07:15 | NUR ---
ICU/RN PATIENT IN BED TOLERATING 6L OF 02 SATURATING AT 94% WITH NO COMPLAINTS OF ANY SOB. ALL SAFETY PRECUATIONS APPLIED. ENDORSED PATIENT TO MORNING SHIFT NURSE FOR LOGAN
--- NOTE | 2019-09-12 07:30 | NUR ---
RN AM NOTES PATIENT I BED, AAOX4, ABLE TO VERBALIZE NEEDS, ECUADOREAN SPEAKING LITTLE FRENCH, ON 6L O2 NASAL CANNULA, O2 SAT AT 91%, DENIES SOB, SR HR 90, DENIES CHEST PAIN/DISCOMFORT, LFA G 22 IV SITE FLUSHES WELL, SITE CLEAR. ON [facility], ISOLATION FOR COVID 19, USES URINAL AND BSC. CALL LIGHT WITHIN REACH, BED LOW LOCKED, SR UP X 2, WILL CONTINUE TO MONITOR.
[2019-09-12] MEDS: BLOOD SUGAR DIAGNOSTIC 1 EACH STRIP IN SCH ×4 (07:44→21:27)
--- NOTE | 2019-09-12 09:15 | NUR ---
RN NOTES PATIENT NPO SEEN BY DR. LUCRETIA SOLIS EARLIER. FOR EX-LAP VS OPEN. CONSENT OBTAINED FROM DAUGHTER ANDRÉS ANN, Addendum: 09/12/19 at 1117 by JUANCARLOS CORDERO RN CORRECTION: PLEASE DISREGARD THIS DOCUMENTATION INTENDED FOR ANOTHER PATIENT.
--- NOTE | 2019-09-12 09:30 | NUR ---
RN NOTES DUE MEDS GIVEN
[2019-09-12] MEDS: AMLODIPINE BESYLATE 10 MG TABLET PO SCH (09:32)
[2019-09-12] MEDS: ASPIRIN EC 81 MG TABLET.DR PO SCH (09:33)
[2019-09-12] MEDS: METOPROLOL TARTRATE 25 MG TABLET PO SCH ×2 (09:33→21:18)
[2019-09-12] MEDS: methylPREDNISolone SOD SUCC 125 MG/2ML VIAL IV SCH (09:34)
[2019-09-12] MEDS: HEPARIN SODIUM, PORCINE 5000 UNITS/1 ML VIAL SQ SCH ×2 (09:35→21:04)
--- NOTE | 2019-09-12 19:30 | NUR ---
PROPERTY DISPOSAL OFFICER: RECEIVED PT ALERT AND ORIENTED X3. ON 6L 02 VIA NC WT NO ACUTE DISTRESS. NO C/O PAIN. SR ON METAL REFINER. AFEBRILE. INDEPENDENT TO BED MOBILITY. URINATES ON URINAL/ USES BED SIDE COMMODE. IV SITE INTACT WT NO S/S OF INFILTRATION. HOB AT 35 DEGREES. BED IN LOWEST POSITION AND LOCKED, SIDE RAILS UP X2. CALL LIGHT KEPT WITHIN REACH. WILL CONTINUE TO MONITOR.
--- NOTE | 2019-09-12 19:30 | NUR ---
RN CLOSING NOTES PATIENT IN BED, AAOX4, ABLE TO VERBALIZE NEEDS, PASHTO SPEAKING LITTLE BULGARIAN, ON 6L O2 NASAL CANNULA, O2 SAT AT 91%, DENIES SOB, SR HR 90, DENIES CHEST PAIN/DISCOMFORT, LFA G 22 IV SITE FLUSHES WELL, SITE CLEAR. ON CCHO, ISOLATION FOR COVID 19, USES URINAL AND BSC. CALL LIGHT WITHIN REACH, BED LOW LOCKED, SR UP X 2, ALL NEEDS MET AT THIS TIME. NO SIGNIFICANT CHANGE IN CONDITION. ENDORSED TO NEXT SHIFT FOR LOGAN.
--- NOTE | 2019-09-12 22:48 | NUR ---
COMMUNITY HEALTH PLANNING DIRECTOR: REPORT GIVEN TO HOOD MONTES FOR TRANSFER TO [facility] ROOM 109.
--- NOTE | 2019-09-12 23:00 | NUR ---
CUSTOMER SPECIALIST: PT TRANSFERRED TO [facility] IN STABLE CONDITION.
--- NOTE | 2019-09-12 23:00 | NUR ---
TELE-TD/CLOTH WASHER RECEIVED PT ACCOMPANIED BY ICU STAFF. PT MADE COMFORTABLE IN BED. ORIENTED TO CALL LIGHT AND ROOM. PT VERBALIZED UNDERSTANDING. WILL CONTINUE TO MONITOR.
[2019-09-13] VITALS: BP 135/75
[2019-09-13 04:00] VITALS: BP 148/91
--- NOTE | 2019-09-13 07:30 | NUR ---
RN NOTE PATIENT RECEIVED IN STABLE CONDITION FROM PM NURSE. A/O X3, ON 6L O2 VIA NC, TOLERATING WELL, NO SOB NOTED, NO SIGNS OF RESPIRATORY DISTRESS, PATIENT HAS NO COMPLAINTS. SAFETY MAINTAINED, ISOLATION OBSERVED, CALL LIGHT WITHIN REACH, WILL CONTINUE TO MONITOR.
[2019-09-13 08:00] VITALS: BP 119/74
[2019-09-13] MEDS: BLOOD SUGAR DIAGNOSTIC 1 EACH STRIP IN SCH ×4 (08:17→22:51)
[2019-09-13 08:22] LABS: BASOPHILS # (AUTO) 0.1 /CMM (0.0-0.2); BASOPHILS % (AUTO) 0.5 % (0.0-2.0); HEMATOCRIT 41 % (39-51); HEMOGLOBIN 13.2 g/dL (13.5-17.5); LYMPHOCYTES # (AUTO) 1.2 /CMM (0.8-4.8); LYMPHOCYTES % (AUTO) 7.9 % (20.0-44.0); MEAN CORPUSCULAR HGB CONC 32 g/dl (31.0-36.0); MEAN CORPUSCULAR VOLUME 86 fL (80-96); MONOCYTES # (AUTO) 1.1 /CMM (0.1-1.30); MONOCYTES % (AUTO) 7.2 % (2.0-12.0); NEUTROPHILS # (AUTO) 13.2 /CMM (1.8-8.9); NEUTROPHILS % (AUTO) 84.4 % (43.0-81.0); PLATELET COUNT (AUTO) 364 /CMM (150-450); RED BLOOD CELL COUNT(AUTO) 4.74 MIL/uL (4.5-6.0); WHITE BLOOD COUNT (AUTO) 15.7 K/uL (4.3-11.0)
[2019-09-13] MEDS: METOPROLOL TARTRATE 25 MG TABLET PO SCH ×2 (08:26→21:56)
[2019-09-13] MEDS: AMLODIPINE BESYLATE 10 MG TABLET PO SCH (08:26)
[2019-09-13] MEDS: CITRIC ACID/SODIUM CITRATE (BICITRA)15 ML UDC PO SCH ×2 (08:26→16:50)
[2019-09-13] MEDS: ASPIRIN EC 81 MG TABLET.DR PO SCH (08:26)
[2019-09-13] MEDS: methylPREDNISolone SOD SUCC 125 MG/2ML VIAL IV SCH (08:27)
[2019-09-13] MEDS: HEPARIN SODIUM, PORCINE 5000 UNITS/1 ML VIAL SQ SCH ×2 (08:29→21:57)
[2019-09-13 08:39] LABS: ALBUMIN 2.4 g/dL (3.4-5.0); BILIRUBIN,TOTAL 0.4 mg/dL (0.2-1.0); CALCIUM, SERUM 8.7 mg/dL (8.5-10.1); CREATININE 2.5 mg/dL (0.6-1.3); MAGNESIUM 2.4 mg/dL (1.8-2.4); PHOSPHORUS 3.9 mg/dL (2.5-4.9); POTASSIUM 5.1 mmol/L (3.5-5.1); TOTAL PROTEIN, SERUM 7.9 g/dL (6.4-8.2)
[2019-09-13] MEDS: INSULIN REGULAR, HUMAN 100 UNIT/ML 3 ML VIAL SQ PRN ×4 (10:22→23:16)
[2019-09-13 12:00] VITALS: BP 129/72
[2019-09-13 16:00] VITALS: BP 124/65
--- NOTE | 2019-09-13 19:30 | NUR ---
VETERINARY EPIDEMIOLOGIST OPENING NOTES PATIENT AWAKE IN BED. A/OX3-4. ON 4L NC. NO S/S OF ACUTE RESPIRATORY DISTRESS OR C/O PAIN. TELE MONITOR READING NSR, HEART RATE 76. IV PRESENT ON LEFT FA, SIZE 22, INTACT & PATENT, HEP LOCKED. DROPLET/CONTACT PRECAUTIONS IN PLACE FOR POSITIVE COVID 19. SAFETY MEASURES IN PLACE AND PATIENT'S NEEDS MET. BED LOCKED, ALARM ON, SIDE RAILS X2, CALL LIGHT WITHIN REACH. WILL CONTINUE TO MONITOR.
[2019-09-13 20:00] VITALS: BP 144/77
--- NOTE | 2019-09-13 20:14 | NUR ---
RN CLOSING NOTES PATIENT REMAINED IN STABLE CONDITION DURING MY SHIFT. PATIENT IS ON 4L O2 VIA NC, SATURATING WELL AT 96%, ENDORSED TO PM NURSE TO CONTINUE TITRATING OXYGEN DOWN PER MD ORDER. LONG PATIENT SATURATING ABOVE 93%, OK TO TITRATE DOWN. ALL SCHEDULED MEDS GIVEN ON TIME, SAFETY WAS MAINTAINED, CALL LIGHT WITHIN REACH, ENDORSED TO PM NURSE FOR CONTINUITY OF CARE.
[2019-09-13] MEDS ORDERED: INSULIN GLARGINE, 100 UNIT/ML CARTRIDGE SQ SCH (22:00)
[2019-09-13] MEDS ORDERED: INSULIN REGULAR, HUMAN 100 UNIT/ML 10 ML VIAL SQ ONE (23:30)
[2019-09-14] VITALS (7 sets, daily range): BP systolic 124–144; BP diastolic 62–84
[2019-09-14] MEDS ORDERED: IV NS 0.9% 1,000 ML IV ONE (01:30)
--- NOTE | 2019-09-14 01:35 | NUR ---
PHARMACY INTAKE TECHNICIAN NOTES PATIENT'S BLOOD SUGAR 478. NOTIFIED MACADAM RAKER AIRCRAFT INSTRUMENT MECHANIC, ALMITA ALVARADO. PER ORDERS, NO INSULIN COVERAGE FOR NOW HOWEVER SWITCH INSULIN SLIDING SCALE TO AGGRESSIVE AND GIVE PATIENT ONE BAG OF 1L NS AT 70 ML/HR.
[2019-09-14] MEDS ORDERED: DEXTROSE 50%-WATER 50 ML DISP.SYRIN IV PRN (06:30)
[2019-09-14 06:51] LABS: BASOPHILS # (AUTO) 0.1 /CMM (0.0-0.2); BASOPHILS % (AUTO) 0.4 % (0.0-2.0); HEMATOCRIT 39 % (39-51); HEMOGLOBIN 12.6 g/dL (13.5-17.5); LYMPHOCYTES # (AUTO) 1.3 /CMM (0.8-4.8); LYMPHOCYTES % (AUTO) 7.1 % (20.0-44.0); MEAN CORPUSCULAR HGB CONC 32 g/dl (31.0-36.0); MEAN CORPUSCULAR VOLUME 86 fL (80-96); MONOCYTES # (AUTO) 1.6 /CMM (0.1-1.30); MONOCYTES % (AUTO) 8.7 % (2.0-12.0); NEUTROPHILS # (AUTO) 15.1 /CMM (1.8-8.9); NEUTROPHILS % (AUTO) 83.8 % (43.0-81.0); PLATELET COUNT (AUTO) 371 /CMM (150-450); RED BLOOD CELL COUNT(AUTO) 4.56 MIL/uL (4.5-6.0)
--- NOTE | 2019-09-14 06:57 | NUR ---
BUSINESS BANKING SALES ASSISTANT CLOSING NOTES PATIENT SLEEPING IN BED. A/OX3-4. ON 4L NC. NO S/S OF ACUTE RESPIRATORY DISTRESS OR C/O PAIN. TELE MONITOR READING NSR. IV PRESENT ON LEFT FA, SIZE 22, INTACT & PATENT, HEP LOCKED. DROPLET/CONTACT PRECAUTIONS IN PLACE FOR POSITIVE COVID 19. SAFETY MEASURES IN PLACE AND PATIENT'S NEEDS MET. BED LOCKED, ALARM ON, SIDE RAILS X2, CALL LIGHT WITHIN REACH. WILL ENDORSE TO DAY SHIFT NURSE PLAN OF CARE.
[2019-09-14] MEDS: BLOOD SUGAR DIAGNOSTIC 1 EACH STRIP IN SCH ×4 (07:30→21:24)
[2019-09-14 07:32] LABS: ALBUMIN 2.4 g/dL (3.4-5.0); BILIRUBIN,TOTAL 0.3 mg/dL (0.2-1.0); CALCIUM, SERUM 8.3 mg/dL (8.5-10.1); CREATININE 2.5 mg/dL (0.6-1.3); MAGNESIUM 2.4 mg/dL (1.8-2.4); PHOSPHORUS 3.4 mg/dL (2.5-4.9); POTASSIUM 4.8 mmol/L (3.5-5.1); TOTAL PROTEIN, SERUM 7.3 g/dL (6.4-8.2)
--- NOTE | 2019-09-14 08:00 | NUR ---
BODY LINE FINISHER OPENING NOTES RECEIVED PATIENT AWAKE IN BED. A/OX3-4. ON 4L NC. NO S/S OF ACUTE CARDIAC OR RESPIRATORY DISTRESS OR C/O PAIN. TELE MONITOR READING NSR, HEART RATE 76. IV PRESENT ON LEFT FA, SIZE 22, INTACT & PATENT, HEP LOCKED. DROPLET/CONTACT PRECAUTIONS IN PLACE FOR POSITIVE COVID 19. SAFETY MEASURES IN PLACE AND PATIENT'S NEEDS MET. BED LOCKED, ALARM ON, SIDE RAILS X2, CALL LIGHT WITHIN REACH. WILL CONTINUE TO MONITOR. NOTIFIED PT REGARIDNG NEED FOR URINE SAMPLE.
[2019-09-14] MEDS: methylPREDNISolone SOD SUCC 125 MG/2ML VIAL IV SCH (08:41)
[2019-09-14] MEDS: CITRIC ACID/SODIUM CITRATE (BICITRA)15 ML UDC PO SCH ×2 (08:41→16:41)
[2019-09-14] MEDS: ASPIRIN EC 81 MG TABLET.DR PO SCH (08:41)
[2019-09-14] MEDS: METOPROLOL TARTRATE 25 MG TABLET PO SCH ×2 (08:42→16:42)
[2019-09-14] MEDS: AMLODIPINE BESYLATE 10 MG TABLET PO SCH (08:42)
[2019-09-14] MEDS: INSULIN REGULAR, HUMAN 100 UNIT/ML 3 ML VIAL SQ PRN ×3 (09:15→16:53)
--- NOTE | 2019-09-14 17:52 | NUR ---
GA RECEIVED ORDERS FROM DR. DAVIS FOR EZ 14UNITS [facility] D/T ELEVATED BS AT 414.
--- NOTE | 2019-09-14 18:21 | NUR ---
CARDIAC SURGEON CLOSING NOTES PATIENT AWAKE IN BED. A/OX3-4. ON 4L NC. NO S/S OF ACUTE CARDIAC OR RESPIRATORY DISTRESS OR C/O PAIN. TELE MONITOR READING NSR, HEART RATE 76. IV PRESENT ON LEFT AC G20, INTACT & PATENT, NS RUNNING AT 70ML/HR FOR BAGF TO FINISH. DROPLET/CONTACT PRECAUTIONS IN PLACE FOR POSITIVE COVID 19. SAFETY MEASURES IN PLACE AND PATIENT'S NEEDS MET. BED LOCKED, ALARM ON, SIDE RAILS X2, CALL LIGHT WITHIN REACH. ALL NEEDS MET AND ATTENDED
--- NOTE | 2019-09-14 20:05 | NUR ---
TELE/RN NOTES ISOLATION PRECAUTION IN PLACED. HAND HYGIENE BEFORE AND AFTER PATIENT CARE. PROPER PPE DONNING AND DOFFING. BED LOCKED, CALL LIGHTS WITHIN REACH, BELONGINGS WITHIN REACH. URINE IN URINAL EMPTIED.
--- NOTE | 2019-09-14 20:08 | NUR ---
TELE/RN OPENING NOTES RECEIVED PATIENT IN BED, AWAKE, ALERT X3, BAHAMIAN SPEAKING , ABLE TO FOLLOW SIMPLE INSTRUCTIONS. AND VERBALIZE NEEDS IN BAHAMIAN. RESPIRATIONS EVEN AND UNLABORED, ON ROOM AIR. MONITORING FOR ANY CHANGES. SKIN WARM TO TOUCH. BED LOCKED, CALL LIGHTS WITHIN REACH. WILL MONITOR. RECEIVED ENDORSEMENT FROM AM RN FOR LOGAN.
[2019-09-14] MEDS: INSULIN GLARGINE, 100 UNIT/ML CARTRIDGE SQ SCH (21:45)
[2019-09-14] MEDS: *INSULIN REGULAR(HUMULIN R)HUM 100 UNIT/ML VIAL SQ PRN (21:48)
--- NOTE | 2019-09-14 21:50 | NUR ---
TELE/RN NOTES BLOOD SUGAR CHECK AT 364 SUB Q LANTUS TO GIVE MD ORDER AND WITH SLIDING SCALE COVERGA. PATIENT ALERT, ORIENTED AND SNACKS TO GIVE. WILL MONITOR.
[2019-09-15] VITALS (7 sets, daily range): BP systolic 124–167; BP diastolic 77–93
--- NOTE | 2019-09-15 06:26 | NUR ---
109-1TELE/RN CLOSING NOTES PATIENT ABLE TO SLEEP DURING THE SHIFT, VERBALIZE NEEDS, ABLE TO DO SOME SELF CARE. RESPIRATIONS EVEN AND UNLABORED, MONITORED FOR ANY CHANGES. BED LOCKED, CALL LIGHTS WITHIN REACH. PRACTICED PROPER HANDWASH AND PROTECTION FOR COVID 19 WITH PPE. ENDORE TO AM RN FOR LOGAN.
[2019-09-15 06:32] LABS: BASOPHILS % (AUTO) 0.1 % (0.0-2.0); HEMATOCRIT 38 % (39-51); HEMOGLOBIN 12.6 g/dL (13.5-17.5); LYMPHOCYTES # (AUTO) 1.3 /CMM (0.8-4.8); LYMPHOCYTES % (AUTO) 6.9 % (20.0-44.0); MEAN CORPUSCULAR HGB CONC 33 g/dl (31.0-36.0); MEAN CORPUSCULAR VOLUME 85 fL (80-96); MONOCYTES # (AUTO) 1.7 /CMM (0.1-1.30); MONOCYTES % (AUTO) 9.3 % (2.0-12.0); NEUTROPHILS # (AUTO) 15.8 /CMM (1.8-8.9); NEUTROPHILS % (AUTO) 83.7 % (43.0-81.0); PLATELET COUNT (AUTO) 402 /CMM (150-450); RED BLOOD CELL COUNT(AUTO) 4.48 MIL/uL (4.5-6.0); WHITE BLOOD COUNT (AUTO) 18.9 K/uL (4.3-11.0)
[2019-09-15 06:58] LABS: ALBUMIN 2.4 g/dL (3.4-5.0); BILIRUBIN,TOTAL 0.3 mg/dL (0.2-1.0); CALCIUM, SERUM 8.2 mg/dL (8.5-10.1); CREATININE 2.1 mg/dL (0.6-1.3); MAGNESIUM 2.1 mg/dL (1.8-2.4); PHOSPHORUS 3.4 mg/dL (2.5-4.9); POTASSIUM 4.7 mmol/L (3.5-5.1); TOTAL PROTEIN, SERUM 7.1 g/dL (6.4-8.2)
--- NOTE | 2019-09-15 07:20 | NUR ---
rn opening notes patient received on room ai r, no sob noted, patient shows no s/s of pain at this time. Remains on tele monitor SR. L AC 20. Bed at the lowest setting, call light within reach, side rails up x2.
[2019-09-15] MEDS: BLOOD SUGAR DIAGNOSTIC 1 EACH STRIP IN SCH ×4 (07:30→22:13)
[2019-09-15] MEDS: METOPROLOL TARTRATE 25 MG TABLET PO SCH ×2 (08:33→16:35)
[2019-09-15] MEDS: ASPIRIN EC 81 MG TABLET.DR PO SCH (08:33)
[2019-09-15] MEDS: CITRIC ACID/SODIUM CITRATE (BICITRA)15 ML UDC PO SCH ×2 (08:33→16:34)
[2019-09-15] MEDS: AMLODIPINE BESYLATE 10 MG TABLET PO SCH (08:34)
[2019-09-15] MEDS: methylPREDNISolone SOD SUCC 125 MG/2ML VIAL IV SCH (08:34)
[2019-09-15] MEDS: INSULIN REGULAR, HUMAN 100 UNIT/ML 3 ML VIAL SQ PRN ×3 (08:46→16:43)
--- NOTE | 2019-09-15 18:20 | NUR ---
rn closing notes Patient remains on room air at this time, MD wanted to titrate patient on room air, which patient is tolerating well at this time. Vital signs stable. A/O x4 and speaks mostly frisian. Remains on TELE with SR 60-70. L AC 20 at this time. Bed at the lowest setting, call light within reach, side rails up x2. Will give report to NOC RN for LOGAN bedside.
--- NOTE | 2019-09-15 19:13 | NUR ---
TELE/RN OPENING NOTES: RECEIVED PT. A/OX4. VERBALLY RESPONSIVE AND ABLE TO MAKE NEEDS KNOWN. MALTESE SPEAKING. ON ROOM AIR, SATURATING WELL. NO SOB NOTED. NO S/S OF DISTRESS, NO C/O PAIN. SKIN INTACT. LEFT AC #20G SL. SAFETY MEASURES IN PLACE. BED IN LOW LOCKED POSITION. CALL LIGHT WITHIN REACH. WILL CONTINUE TO MONITOR.
--- NOTE | 2019-09-15 22:00 | NUR ---
TELE/RN NOTES: BS CHECK FOR HS IS 325. ADMINSITERED 8 UNITS OF REG INSULIN PER SLIDING SCALE. LANTUS 14 UNITS ALSO GIVEN. PT IS GIVEN A LIGHT SNACK TO PREVENT BS FROM DROPPING. WILL CONTINUE TO MONITOR ACCORDINGLY.
[2019-09-15] MEDS: INSULIN GLARGINE, 100 UNIT/ML CARTRIDGE SQ SCH (22:16)
[2019-09-15] MEDS: *INSULIN REGULAR(HUMULIN R)HUM 100 UNIT/ML VIAL SQ PRN (22:18)
[2019-09-16] VITALS (8 sets, daily range): BP systolic 131–169; BP diastolic 78–95
[2019-09-16] MEDS: hydrALAZINE HCL 25 MG TABLET PO PRN (04:20)
--- NOTE | 2019-09-16 04:20 | NUR ---
TELE/RN NOTES: PT. BP IS 169/90. HR: 68. DR. MANN MADE AWARE AND ORDERED FOR HYDRALAZINE PO 25MG Q6H PRN FOR SBP MORE THAN 150. ADMINSITERED. AND PT. TOLERATED WELL. WILL CONTINUE TO MONITOR ACCORDINGLY.
--- NOTE | 2019-09-16 05:30 | NUR ---
TELE/RN NOTES: PT. BP IMPROVED. 134/78. HR: 66. STABLE AND NO C/O PAIN AT THIS TIME. WILL CONTINUA TO MONITOR.
--- NOTE | 2019-09-16 06:15 | NUR ---
TELE/RN CLOSING NOTES: PT. REMAINS A/OX4. VERBALLY RESPONSIVE AND ABLE TO MAKE NEEDS KNOWN. ABLE TO SLEEP DURING THE SHIFT. ABLE TO DO SELF CARE INDEPENDENTLY. ON ROOM AIR, SATURATING WELL. NO SOB NOTED. NO S/S OF DISTRESS, NO C/O PAIN. LEFT AC #20G SL INTACT AND PATENT, FLUSHING WELL. NO SIGNIFICANT CHANGES IN CONDITION. MAINTAINED PROPER ISOLATION PRECAUTIONS FOR COVID 19. TELE READING OF NSR HR ON THE 80S. SAFETY MEASURES KEPT IN PLACE. BED IN LOW, LOCKED POSITION. CALL LIGHT WITHIN REACH. WILL ENDORSE TO DAY SHIFT FOR LOGAN.
--- NOTE | 2019-09-16 07:30 | NUR ---
SEATING CAPTAIN NOTES PATIENT AWAKE IN BED, NO RESPIRATORY DISTRESS, NO C/O PAIN AT THIS TIME. SKIN WARM TO TOUCH, IV ACCESS SITE INTACT AND PATENT. PATIENT'S NEEDS ATTENDED, BED ON LOWEST LOCKED POSITION, CALL LIGHT WITHIN REACH. WILL CONTINUE TO MONITOR.
[2019-09-16 07:50] LABS: BASOPHILS % (AUTO) 0.2 % (0.0-2.0); EOSINOPHILS % (AUTO) 0.4 % (0.0-6.0); HEMATOCRIT 44 % (39-51); LYMPHOCYTES # (AUTO) 3.7 /CMM (0.8-4.8); MEAN CORPUSCULAR HGB CONC 32 g/dl (31.0-36.0); MEAN CORPUSCULAR VOLUME 86 fL (80-96); MONOCYTES # (AUTO) 2.6 /CMM (0.1-1.30); MONOCYTES % (AUTO) 11.1 % (2.0-12.0); NEUTROPHILS % (AUTO) 72.3 % (43.0-81.0); PLATELET COUNT (AUTO) 502 /CMM (150-450); RED BLOOD CELL COUNT(AUTO) 5.09 MIL/uL (4.5-6.0); WHITE BLOOD COUNT (AUTO) 23.5 K/uL (4.3-11.0)
[2019-09-16] MEDS: CITRIC ACID/SODIUM CITRATE (BICITRA)15 ML UDC PO SCH ×2 (08:08→16:43)
[2019-09-16] MEDS: methylPREDNISolone SOD SUCC 125 MG/2ML VIAL IV SCH (08:09)
[2019-09-16] MEDS: ASPIRIN EC 81 MG TABLET.DR PO SCH (08:09)
[2019-09-16 08:12] LABS: ALBUMIN 2.8 g/dL (3.4-5.0); BILIRUBIN,TOTAL 0.4 mg/dL (0.2-1.0); CALCIUM, SERUM 8.6 mg/dL (8.5-10.1); CREATININE 2.1 mg/dL (0.6-1.3); MAGNESIUM 2.1 mg/dL (1.8-2.4); PHOSPHORUS 3.2 mg/dL (2.5-4.9); POTASSIUM 4.8 mmol/L (3.5-5.1); TOTAL PROTEIN, SERUM 7.7 g/dL (6.4-8.2)
[2019-09-16] MEDS: METOPROLOL TARTRATE 25 MG TABLET PO SCH ×2 (08:16→16:43)
[2019-09-16] MEDS: AMLODIPINE BESYLATE 10 MG TABLET PO SCH (08:16)
[2019-09-16] MEDS: BLOOD SUGAR DIAGNOSTIC 1 EACH STRIP IN SCH ×4 (08:20→21:03)
[2019-09-16] MEDS: INSULIN REGULAR, HUMAN 100 UNIT/ML 3 ML VIAL SQ PRN ×3 (08:49→17:03)
[2019-09-16] MEDS: INSULIN GLARGINE, 100 UNIT/ML CARTRIDGE SQ SCH (21:34)
[2019-09-16] MEDS: *INSULIN REGULAR(HUMULIN R)HUM 100 UNIT/ML VIAL SQ PRN (21:36)
[2019-09-17] VITALS (10 sets, daily range): BP systolic 137–179; BP diastolic 70–92
--- NOTE | 2019-09-17 00:32 | NUR ---
RADIATION ENGINEER NOTES PATIENT RESTING IN BED, NO RESPIRATORY DISTRESS, NO C/O PAIN AT THIS TIME. SKIN WARM TO TOUCH, IV ACCESS SITE INTACT AND PATENT. PATIENT'S NEEDS ATTENDED, BED ON LOWEST LOCKED POSITION, CALL LIGHT WITHIN REACH. WILL ENDORSE TO ABELINO JUAREZ.
--- NOTE | 2019-09-17 04:56 | NUR ---
ENDING NOTES: SLEPT THRU THE NIGHT. NO SOB ON ROOM AIR. ISOLATION CONTINUED FOR CORCID+. USING THE URINAL X3. REPOSITIONS HIMSELF IN BED.
[2019-09-17] MEDS: BLOOD SUGAR DIAGNOSTIC 1 EACH STRIP IN SCH ×4 (07:43→21:14)
--- NOTE | 2019-09-17 08:00 | NUR ---
WATER MANGLE TENDER OPENING NOTES RECEIVED PATIENT FROM PLATE STACKER HAND NURSE IN BED, AWAKE, CONSCIOUS, COOPERATIVE, A/O X 4, LAC 20G, BREATHING AT ROOM AIR, NO SIGNS OF RESPIRATORY DISTRESS.
[2019-09-17] MEDS: methylPREDNISolone SOD SUCC 125 MG/2ML VIAL IV SCH (08:15)
[2019-09-17] MEDS: ASPIRIN EC 81 MG TABLET.DR PO SCH (08:16)
[2019-09-17] MEDS: CITRIC ACID/SODIUM CITRATE (BICITRA)15 ML UDC PO SCH ×2 (08:16→17:20)
[2019-09-17] MEDS: AMLODIPINE BESYLATE 10 MG TABLET PO SCH (08:20)
[2019-09-17] MEDS: METOPROLOL TARTRATE 25 MG TABLET PO SCH ×2 (08:20→17:20)
[2019-09-17] MEDS: INSULIN REGULAR, HUMAN 100 UNIT/ML 3 ML VIAL SQ PRN ×2 (12:12→17:46)
[2019-09-17] MEDS: hydrALAZINE HCL 50 MG TABLET PO SCH ×2 (12:16→17:18)
--- NOTE | 2019-09-17 17:51 | NUR ---
TELE NOTES BLOOD SUGAR 403 MG/DL. 20 UNITS HUMULIN R GIVEN VIA SQ.
--- NOTE | 2019-09-17 18:04 | NUR ---
TELE NOTES TALKED TO DR. DAVIS ON THE PHONE. INFORMED HIM PATIENT'S BLOOD SUGAR IS 403 MG/DL AND 20 UNITS INSULIN GIVEN SQ. HE SAID TO INCREASE LANTUS TO 18 UNITS AT NIGHT.
--- NOTE | 2019-09-17 18:56 | NUR ---
OFFICE SERVICES MANAGER CLOSING NOTES ENDORSED TO PER DIEM PHYSICAL THERAPIST NURSE IN BED, ASLEEP, CONSCIOUS, COOPERATIVE, BREATHING AT ROOM AIR, NO SIGNS OF RESPIRATORY DISTRESS, LAC 20G, NO REDNESS OR INFILTRATION NOTED, SIDE RAILS UP FOR SAFETY.
--- NOTE | 2019-09-17 19:30 | NUR ---
PRESIDENT FINANCIAL INSTITUTION OPENING NOTE RECEIVED PATIENT ON ISOLATION FOR COVID 19. PATIENT IN BED. A/O X4, ESTONIAN SPEAKING. PATIENT TOLERATING ROOM AIR. RESPIRATIONS ARE EVEN AND UNLABORED. NO S/S SOB NOTED. NO C/O PAIN AT THIS TIME. EXTERNAL TELE MONITOR READS SINUS RHYTHM HR 72. IN NO APPARENT DISTRESS. IV ACCESS IN LAC#20 PATENT AND SALINE LOCKED. INFORMED PATIENT HE CAN NOT HAVE ANY SNACKS AT THIS TIME D/T HIGH BLOOD SUGAR. BED IS LOW AND LOCKED, HOB ELEVATED IN SEMI FOWLERS, SIDE RAILS UP X3. MARCO A LIGHT WITHIN REACH. WILL CONTINUE TO MONITOR.
--- NOTE | 2019-09-17 20:10 | NUR ---
ASPHALT ROLLER PERSON NOTE 1914 RICK FROM LAB INFORMED ME OF CRITICAL LAB, [facility] GLUCOSE 468. WILL INFORM MD. 1939 MADE CALL TO [facility] AWAITING FOR MD TO RETURN CALL. 2209 MADE AWARE OF THE CRITICAL LAB OF RANDOM GLUCOSE 468. ALSO INFORMED CHISEL GRINDER MD THAT PER REPORT THE PATIENTS BLOOD SUGAR AT 1726 WAS 403 AND RECEIVED 20 UNITS OF REGULAR INSULIN WELL MORNING MD DR. CASTELLANOS ORDERED 18 UNITS LANTUS. TELEPHONE ORDER: NO NEW ORDERS. ORDERE READ BACK, NOTED AND CARRIED OUT.
[2019-09-17] MEDS: hydrALAZINE HCL 25 MG TABLET PO PRN (21:11)
[2019-09-17] MEDS: NITROGLYCERIN 30 GM TUBE TP SCH (21:11)
[2019-09-17] MEDS: *INSULIN REGULAR(HUMULIN R)HUM 100 UNIT/ML VIAL SQ PRN (21:26)
[2019-09-17] MEDS ORDERED: INSULIN GLARGINE, 100 UNIT/ML CARTRIDGE SQ SCH (22:00)
[2019-09-18] VITALS: BP 160/94
[2019-09-18 04:00] VITALS: BP 142/85
--- NOTE | 2019-09-18 06:12 | NUR ---
JUDICIAL CLERK CLOSING NOTE PATIENT REMAINS ON ISOLATION FOR COVID 19. PATIENT IN BED. A/O X4, MARSHALLESE SPEAKING. REMAINS TOLERATING ROOM AIR. RESPIRATIONS ARE EVEN AND UNLABORED. NO SOB NOTED. NO C/O PAIN. EXTERNAL TELE MONITOR READS SINUS RHYTHM HR 72. NO DISTRESS. IV ACCESS IN MAINTAINED IN LAC#20 PATENT AND SALINE LOCKED. BED REMAINS LOW AND LOCKED, HOB ELEVATED IN SEMI FOWLERS, SIDE RAILS UP X3. MARCO A LIGHT WITHIN REACH. WILL ENDORSE TO NEXT SHIFT.
[2019-09-18 06:24] LABS: BASOPHILS % (AUTO) 0.1 % (0.0-2.0); EOSINOPHILS % (AUTO) 0.5 % (0.0-6.0); HEMATOCRIT 43 % (39-51); HEMOGLOBIN 13.7 g/dL (13.5-17.5); LYMPHOCYTES # (AUTO) 3.1 /CMM (0.8-4.8); LYMPHOCYTES % (AUTO) 14.9 % (20.0-44.0); MEAN CORPUSCULAR HGB CONC 32 g/dl (31.0-36.0); MEAN CORPUSCULAR VOLUME 86 fL (80-96); MONOCYTES # (AUTO) 2.4 /CMM (0.1-1.30); MONOCYTES % (AUTO) 11.4 % (2.0-12.0); NEUTROPHILS # (AUTO) 15.1 /CMM (1.8-8.9); NEUTROPHILS % (AUTO) 73.1 % (43.0-81.0); PLATELET COUNT (AUTO) 429 /CMM (150-450); WHITE BLOOD COUNT (AUTO) 20.6 K/uL (4.3-11.0)
[2019-09-18 06:39] LABS: ALBUMIN 2.8 g/dL (3.4-5.0); BILIRUBIN,TOTAL 0.4 mg/dL (0.2-1.0); CALCIUM, SERUM 8.3 mg/dL (8.5-10.1); CREATININE 2.2 mg/dL (0.6-1.3); MAGNESIUM 2.1 mg/dL (1.8-2.4); PHOSPHORUS 4.3 mg/dL (2.5-4.9); POTASSIUM 4.3 mmol/L (3.5-5.1); TOTAL PROTEIN, SERUM 7.3 g/dL (6.4-8.2)
[2019-09-18] MEDS ORDERED: methylPREDNISolone SOD SUCC 40 MG/ML VIAL IV SCH (06:54)
[2019-09-18] MEDS: BLOOD SUGAR DIAGNOSTIC 1 EACH STRIP IN SCH ×2 (07:30→12:18)
--- NOTE | 2019-09-18 07:30 | NUR ---
TELE ROLL BUILDER: NOTES BMP RESULTED, GLUCOSE RANDOM=61. BREAKFAST SERVED.
[2019-09-18 08:00] VITALS: BP 131/70
[2019-09-18 08:29] LABS: LYMPHOCYTES % (MANUAL) 16 % (16-48); METAMYELOCYTES % 2 % (0-0); MONOCYTES % (MANUAL) 9 % (0-11.0); MYELOCYTES % 1 % (0-0); NEUTROPHILS % (MANUAL) 72 (42-76)
[2019-09-18] MEDS: ASPIRIN EC 81 MG TABLET.DR PO SCH (08:54)
[2019-09-18] MEDS: CITRIC ACID/SODIUM CITRATE (BICITRA)15 ML UDC PO SCH (08:55)
[2019-09-18] MEDS: METOPROLOL TARTRATE 25 MG TABLET PO SCH (08:55)
[2019-09-18] MEDS: AMLODIPINE BESYLATE 10 MG TABLET PO SCH (08:55)
[2019-09-18] MEDS: NITROGLYCERIN 30 GM TUBE TP SCH ×2 (09:00→10:21)
[2019-09-18] MEDS: hydrALAZINE HCL 50 MG TABLET PO SCH ×2 (09:00→13:04)
--- NOTE | 2019-09-18 09:00 | NUR ---
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 no distress noted. instructed to call for assistance. will continue to monitor.
--- NOTE | 2019-09-18 11:00 | NUR ---
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 no distress noted. instructed to call for assistance. will continue to monitor.
[2019-09-18 12:00] VITALS: BP 132/74
[2019-09-18] MEDS ORDERED: PRED5TAB48 PO (12:07)
[2019-09-18] MEDS ORDERED: Insulin Glargine,Hum SQ (12:07)
[2019-09-18] MEDS ORDERED: HYDR-4077 PO (12:07)
[2019-09-18] MEDS ORDERED: METO25TA20 PO (12:07)
[2019-09-18] MEDS: INSULIN REGULAR, HUMAN 100 UNIT/ML 3 ML VIAL SQ PRN (12:23)
--- NOTE | 2019-09-18 13:00 | NUR ---
tele transportation manager: md visit seen by dr. logan with order to d'c home with Discharge instructions <Follow up with PCP in 2 weeks, Continue Isolation for 2 more weeks. order acknowledged.
--- NOTE | 2019-09-18 15:00 | NUR ---
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 per pt will be here within 2 hours. Addendum: 09/18/19 at 1527 by KATHY ROBERT DRY HEAT CABINET ATTENDANT provided [place]ian and kosovan discharge instructions. both copies given to pt.
[2019-09-18 16:00] VITALS: BP 131/64
--- NOTE | 2019-09-18 17:00 | NUR ---
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 tele removed. awaiting for to pick him up. needs attended. no distress noted. will continue to monitor.
--- NOTE | 2019-09-18 17:15 | NUR ---
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 discharged home in stable condition with all d'c papers accompanied by .
== END 2019-09-18 17:53 | disposition home or self-care (01) | DRG 177 ==
LOC: ER 16:09 → TELE1 20:28 → MEDSG1 09-07 02:25 → TELE1 09-07 07:01 → ICU 09-11 13:09 → TELE-TD 09-12 23:05 → TELE1 09-13 08:10 → ICU 09-16 18:50 → TELE1 09-16 19:15
PROVIDERS: ADMIT Nurse Practitioner Acute Care; ATTEND Internal Medicine
DX: U07.1 COVID-19 (principal); J12.89 Other viral pneumonia; N17.0 Acute kidney failure with tubular necrosis; J96.01 Acute respiratory failure with hypoxia; I21.A1 Myocardial infarction type 2; E44.0 Moderate protein-calorie malnutrition; E87.2 Acidosis; E86.0 Dehydration; N18.9 Chronic kidney disease, unspecified; I12.9 Hypertensive chronic kidney disease with stage 1 through stage 4 chronic kidney disease, or unspecified chronic kidney disease; E11.22 Type 2 diabetes mellitus with diabetic chronic kidney disease; Z68.24 Body mass index [BMI] 24.0-24.9, adult; E88.09 Other disorders of plasma-protein metabolism, not elsewhere classified; I48.0 Paroxysmal atrial fibrillation; E11.65 Type 2 diabetes mellitus with hyperglycemia; T38.0X5A Adverse effect of glucocorticoids and synthetic analogues, initial encounter; Y92.89 Other specified places as the place of occurrence of the external cause; D72.829 Elevated white blood cell count, unspecified; R74.0 Nonspecific elevation of levels of transaminase and lactic acid dehydrogenase [LDH]; E11.649 Type 2 diabetes mellitus with hypoglycemia without coma
CPT/HCPCS: 36415; 36600; 71045-TC; 76700-TC; 80048-TC; 80053-TC; 80061-TC; 81000-TC; 82550-TC; 82570-TC; 82728-TC; 82803-TC; 82945-TC; 82962-TC; 83605-TC; 83615-TC; 83735-TC; 83880; 83970; 84100-TC; 84155; 84155-TC; 84165; 84300-TC; 84484-TC; 85025-TC; 85378-TC; 85730-TC; 86140-TC; 87040-TC; 87081-TC; 87086-TC; G0378; J0692; J1644; J1815; J2920; J2930; J3370; J3490; J7030; J7040; J7060